=== PATIENT | male | born 1995 | race Caucasian/White ===

== ENCOUNTER 2018-12-17 10:59 | Emergency (ER) | payer MEDICAID ==
[~2018-12-17] VITALS: Ht 177.8 cm; Wt 81.6 kg
--- NOTE | 2018-12-17 11:08 | NUR ---
Patient to ER bed 8 to gown for evaluation. Side rails up.
--- NOTE | 2018-12-17 11:09 | NUR ---
TAVON Villegas at bedside examining patient.
[2018-12-17 11:10] VITALS: BP_SYST 160
[2018-12-17 11:15] VITALS: BP_SYST 160
--- NOTE | 2018-12-17 11:15 | NUR ---
Patient given written and verbal discharge instructions and verbalizes understanding. ER MD discussed with patient the results and treatment provided. Patient in stable condition. ID arm band removed. Rx of Motrin given. Patient educated on pain management and to follow up with PMD. Pain Scale 0. Opportunity for questions provided and answered. Medication side effect fact sheet provided.
== END 2018-12-17 11:15 | disposition home or self-care (01) ==
LOC: SED 10:59
DX: S42.001A Fracture of unspecified part of right clavicle, initial encounter for closed fracture (principal); X58.XXXA Exposure to other specified factors, initial encounter; Y93.89 Activity, other specified; Y92.89 Other specified places as the place of occurrence of the external cause; Y99.8 Other external cause status
CPT/HCPCS: 99282